=== PATIENT | male | born 1990 | race African-American/Black ===

== ENCOUNTER 2018-11-15 13:24 | Emergency (ER) | payer MEDICAID ==
[~2018-11-15] VITALS: Ht 182.9 cm; Wt 87.5 kg
[2018-11-15 13:46] VITALS: BP 154/94
== END 2018-11-15 18:50 | disposition left against medical advice (07) ==
LOC: ER 13:24
DX: Z53.21 Procedure and treatment not carried out due to patient leaving prior to being seen by health care provider (principal)